=== PATIENT | female | born 2005 | race Hispanic/Latino ===

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

== ENCOUNTER 2024-01-09 18:33 | Emergency (ER) | payer OTHER, SELFPAY | END 2024-01-09 19:20 | disposition home or self-care (01) | LOC: ERS 18:33 | DX: S50.12XA Contusion of left forearm, initial encounter (principal); S00.531A Contusion of lip, initial encounter; G43.909 Migraine, unspecified, not intractable, without status migrainosus; K59.00 Constipation, unspecified; K21.9 Gastro-esophageal reflux disease without esophagitis; V49.9XXA Car occupant (driver) (passenger) injured in unspecified traffic accident, initial encounter ==

== ENCOUNTER 2025-04-01 23:49 | Emergency (ER) | payer SELFPAY | END 2025-04-02 04:08 | disposition home or self-care (01) | LOC: ERS 23:49 | DX: T59.811A Toxic effect of smoke, accidental (unintentional), initial encounter (principal); R06.02 Shortness of breath; R05.9 Cough, unspecified | CPT/HCPCS: 71045; 93005 ==